=== PATIENT | female | born 1930 | race African-American/Black ===

== ENCOUNTER 2018-01-05 14:30 | Inpatient (IN) | payer MEDICARE, MEDICAID ==
[~2018-01-05] VITALS: Ht 162.6 cm; Wt 60.8 kg
[2018-01-05 16:48] VITALS: BP 165/66
[2018-01-05 16:59] VITALS: BP 155/67
[2018-01-05] MEDS ORDERED: DOCUSATE SODIUM 100MG CAPSULE PO PRN (17:00)
[2018-01-05] MEDS ORDERED: ONDANSETRON HCL 4MG/2ML INJ IV PRN (17:00)
[2018-01-05] MEDS ORDERED: GUAIFENESIN 200MG/10ML SUGAR FREE UDC PO PRN (17:00)
[2018-01-05] MEDS ORDERED: DIPHENHYDRAMINE 50MG/ML VIAL IV PRN (17:00)
[2018-01-05] MEDS ORDERED: CLONIDINE 0.1MG TABLET PO PRN (17:00)
[2018-01-05] MEDS ORDERED: LORAZEPAM 0.5MG TABLET PO PRN (17:00)
[2018-01-05] MEDS ORDERED: IPRATROPIUM/ALBUTEROL 0.5-3(2.5)MG/3ML NEB INH PRN (17:00)
[2018-01-05] MEDS ORDERED: CALC-1042 MT (17:08)
[2018-01-05] MEDS ORDERED: MAGN400C MT (17:08)
[2018-01-05] MEDS ORDERED: LOSA50TA20 MT (17:08)
[2018-01-05] MEDS ORDERED: CHOL500063 MT (17:08)
[2018-01-05] MEDS ORDERED: PREG75CA MT (17:08)
[2018-01-05] MEDS ORDERED: TRAMADOL 50MG TABLET PO PRN (17:26)
[2018-01-05] MEDS: SULFASALAZINE 500MG TABLET PO SCH (18:45)
[2018-01-05 20:00] VITALS: BP 110/50
[2018-01-05 21:00] VITALS: BP_SYST 155; BP_SYST 173; BP_SYST 183; BP_DIAS 129; BP_DIAS 60; BP_DIAS 71
[2018-01-05 21:57] LABS: CLARITY URINE CLEAR (CLEAR); COLOR URINE YELLOW (YELLOW); KETONES URINE NEGATIVE (NEGATIVE); LEUKOCYTE ESTERASE URINE NEGATIVE (NEGATIVE); NITRITE URINE NEGATIVE (NEGATIVE); OCCULT BLOOD URINE NEGATIVE (NEGATIVE); PH URINE 5.5 (4.5-8.0); PROTEIN URINE NEGATIVE (NEGATIVE); SPECIFIC GRAVITY URINE 1.009 (1.005-1.030); UROBILINOGEN URINE 0.2 E.U./dL (0.2-1.0)
[2018-01-05 22:45] VITALS: BP 140/56
[2018-01-06] MEDS: TRAMADOL 50MG TABLET PO PRN ×2 (03:21→21:59)
[2018-01-06] MEDS: OMEPRAZOLE 20MG CAPSULE EXTENDED RELEASE PO SCH (06:16)
[2018-01-06 08:17] VITALS: BP 119/48
[2018-01-06] MEDS: PREGABALIN 75MG CAPSULE PO SCH (09:38)
[2018-01-06] MEDS: SULFASALAZINE 500MG TABLET PO SCH ×2 (09:38→17:11)
[2018-01-06] MEDS: MAGNESIUM OXIDE 400MG TABLET PO SCH (09:38)
[2018-01-06] MEDS: CALCIUM CARBONATE 1250MG TABLET (500MG ELEMENTAL CALCIUM) PO SCH (09:38)
[2018-01-06] MEDS: LOSARTAN POTASSIUM 50 MG TABLET PO SCH (09:38)
[2018-01-06] MEDS: ONDANSETRON HCL 4MG TABLET PO PRN (13:49)
[2018-01-06 20:00] VITALS: BP_SYST 113; BP_SYST 124; BP_SYST 129; BP_DIAS 51; BP_DIAS 60; BP_DIAS 63
[2018-01-06 20:41] VITALS: BP 130/50
[2018-01-07] MEDS: OMEPRAZOLE 20MG CAPSULE EXTENDED RELEASE PO SCH (06:57)
[2018-01-07 07:57] VITALS: BP 150/56
[2018-01-07] MEDS: PREGABALIN 75MG CAPSULE PO SCH (09:27)
[2018-01-07] MEDS: CALCIUM CARBONATE 1250MG TABLET (500MG ELEMENTAL CALCIUM) PO SCH (09:28)
[2018-01-07] MEDS: LOSARTAN POTASSIUM 50 MG TABLET PO SCH (09:28)
[2018-01-07] MEDS: SULFASALAZINE 500MG TABLET PO SCH ×2 (09:28→17:10)
[2018-01-07] MEDS: MAGNESIUM OXIDE 400MG TABLET PO SCH (09:28)
[2018-01-07 15:15] VITALS: BP_SYST 112; BP_SYST 126; BP_SYST 128; BP_DIAS 47; BP_DIAS 51; BP_DIAS 61
[2018-01-07] MEDS: LIDOCAINE 5% PATCH TOP SCH (15:57)
[2018-01-07] MEDS ORDERED: LORAZEPAM 0.5MG TABLET PO PRN (17:00)
[2018-01-07] MEDS: BISACODYL 5MG TABLET PO PRN (17:09)
[2018-01-07] MEDS: DOCUSATE SODIUM 100MG CAPSULE PO SCH (17:10)
[2018-01-07 20:00] VITALS: BP_SYST 110; BP_SYST 126; BP_DIAS 52; BP_DIAS 60
[2018-01-07 20:11] LABS: CLARITY URINE CLEAR (CLEAR); COLOR URINE YELLOW (YELLOW); KETONES URINE NEGATIVE (NEGATIVE); LEUKOCYTE ESTERASE URINE TRACE (NEGATIVE); NITRITE URINE NEGATIVE (NEGATIVE); OCCULT BLOOD URINE NEGATIVE (NEGATIVE); PROTEIN URINE NEGATIVE (NEGATIVE); SPECIFIC GRAVITY URINE 1.008 (1.005-1.030); UROBILINOGEN URINE 0.2 E.U./dL (0.2-1.0)
[2018-01-08] MEDS: ACETAMINOPHEN 325MG TABLET PO PRN (06:19)
[2018-01-08] MEDS: OMEPRAZOLE 20MG CAPSULE EXTENDED RELEASE PO SCH ×2 (06:19→09:18)
[2018-01-08 07:05] LABS: BASOPHILS % 0.7 % (0.0-2.0); EOSINOPHILS % 1.9 % (0.0-5.0); HEMATOCRIT. 39.6 % (36.0-48.0); HEMOGLOBIN. 13.2 g/dL (12.0-16.0); LYMPHOCYTES % 32.7 % (20.0-50.0); MEAN CORPUSCULAR HEMOGLOBIN 26.8 pg (28.0-32.0); MEAN CORPUSCULAR VOLUME 80.4 fL (81.0-99.0); MEAN PLATELET VOLUME 9.6 fl (7.4-10.4); MONOCYTES % 12.7 % (2.0-8.0); PLATELET 274 x1000/uL (130-400); RED BLOOD CELL COUNT 4.93 mill/uL (4.2-5.4); RED CELL DISTRIBUTION WIDTH 15.8 % (11.6-14.6)
[2018-01-08 07:55] VITALS: BP 119/62
[2018-01-08] MEDS: LOSARTAN POTASSIUM 50 MG TABLET PO SCH (09:18)
[2018-01-08] MEDS: SULFASALAZINE 500MG TABLET PO SCH ×2 (09:18→17:31)
[2018-01-08] MEDS: MAGNESIUM OXIDE 400MG TABLET PO SCH (09:18)
[2018-01-08] MEDS: CALCIUM CARBONATE 1250MG TABLET (500MG ELEMENTAL CALCIUM) PO SCH (09:18)
[2018-01-08] MEDS: PREGABALIN 75MG CAPSULE PO SCH (09:19)
[2018-01-08] MEDS: LIDOCAINE 5% PATCH TOP SCH (09:19)
[2018-01-08] MEDS: DOCUSATE SODIUM 100MG CAPSULE PO SCH ×2 (09:19→17:31)
[2018-01-08 20:00] VITALS: BP_SYST 118; BP_SYST 128; BP_DIAS 63; BP_DIAS 68
[2018-01-09 08:00] VITALS: BP_SYST 131; BP_SYST 145; BP_DIAS 54; BP_DIAS 66
[2018-01-09] MEDS: LIDOCAINE 5% PATCH TOP SCH (08:07)
[2018-01-09] MEDS: DOCUSATE SODIUM 100MG CAPSULE PO SCH ×2 (08:08→17:15)
[2018-01-09] MEDS: SULFASALAZINE 500MG TABLET PO SCH ×2 (08:08→17:15)
[2018-01-09] MEDS: PREGABALIN 75MG CAPSULE PO SCH (08:08)
[2018-01-09] MEDS: MAGNESIUM OXIDE 400MG TABLET PO SCH (08:08)
[2018-01-09] MEDS: LOSARTAN POTASSIUM 50 MG TABLET PO SCH (08:08)
[2018-01-09] MEDS: FAMOTIDINE 20MG TABLET PO SCH (08:08)
[2018-01-09] MEDS: CALCIUM CARBONATE 1250MG TABLET (500MG ELEMENTAL CALCIUM) PO SCH (08:08)
[2018-01-09 20:00] VITALS: BP_SYST 124; BP_SYST 128; BP_DIAS 60; BP_DIAS 62
[2018-01-09] MEDS: ACETAMINOPHEN 325MG TABLET PO PRN (22:35)
[2018-01-10 08:00] VITALS: BP_SYST 148; BP_SYST 153; BP_DIAS 64; BP_DIAS 69
[2018-01-10] MEDS: FAMOTIDINE 20MG TABLET PO SCH (08:09)
[2018-01-10] MEDS: LOSARTAN POTASSIUM 50 MG TABLET PO SCH (08:09)
[2018-01-10] MEDS: MAGNESIUM OXIDE 400MG TABLET PO SCH (08:09)
[2018-01-10] MEDS: SULFASALAZINE 500MG TABLET PO SCH ×2 (08:09→17:17)
[2018-01-10] MEDS: DOCUSATE SODIUM 100MG CAPSULE PO SCH ×2 (08:09→17:17)
[2018-01-10] MEDS: LIDOCAINE 5% PATCH TOP SCH (08:10)
[2018-01-10] MEDS: PREGABALIN 75MG CAPSULE PO SCH (08:10)
[2018-01-10] MEDS: CALCIUM CARBONATE 1250MG TABLET (500MG ELEMENTAL CALCIUM) PO SCH (08:10)
[2018-01-10 20:00] VITALS: BP 121/56
[2018-01-10] MEDS ORDERED: SIMETHICONE 80MG TABLET CHEW PO PRN (21:15)
[2018-01-11 08:00] VITALS: BP 148/62
[2018-01-11] MEDS: MAGNESIUM OXIDE 400MG TABLET PO SCH (08:39)
[2018-01-11] MEDS: SULFASALAZINE 500MG TABLET PO SCH ×2 (08:39→17:42)
[2018-01-11] MEDS: PREGABALIN 75MG CAPSULE PO SCH (08:39)
[2018-01-11] MEDS: FAMOTIDINE 20MG TABLET PO SCH (08:39)
[2018-01-11] MEDS: DOCUSATE SODIUM 100MG CAPSULE PO SCH ×2 (08:39→17:42)
[2018-01-11] MEDS: CALCIUM CARBONATE 1250MG TABLET (500MG ELEMENTAL CALCIUM) PO SCH (08:39)
[2018-01-11] MEDS: LOSARTAN POTASSIUM 50 MG TABLET PO SCH (08:39)
[2018-01-11] MEDS: LIDOCAINE 5% PATCH TOP SCH (08:40)
[2018-01-11] MEDS: ONDANSETRON HCL 4MG TABLET PO PRN (09:18)
[2018-01-11] MEDS ORDERED: ALPRAZOLAM 0.25 MG TABLET PO PRN (13:45)
[2018-01-11] MEDS: TRAMADOL 50MG TABLET PO PRN (14:01)
[2018-01-11] MEDS: PETROLATUM,WHITE OPHTH OINT 3.5GM BOTHEYE PRN (15:08)
[2018-01-11] MEDS: BISACODYL 5MG TABLET PO PRN (17:42)
[2018-01-11 18:40] VITALS: BP_SYST 100; BP_DIAS 45; BP_DIAS 61
[2018-01-11 20:00] VITALS: BP_SYST 106; BP_SYST 110; BP_SYST 111; BP_DIAS 51; BP_DIAS 55; BP_DIAS 84
[2018-01-12] MEDS: TRAMADOL 50MG TABLET PO PRN ×2 (01:28→23:01)
[2018-01-12] MEDS: BISACODYL 5MG TABLET PO PRN (06:56)
[2018-01-12 08:00] VITALS: BP 118/55
[2018-01-12] MEDS: MAGNESIUM OXIDE 400MG TABLET PO SCH (08:21)
[2018-01-12] MEDS: SULFASALAZINE 500MG TABLET PO SCH ×2 (08:21→17:08)
[2018-01-12] MEDS: DOCUSATE SODIUM 100MG CAPSULE PO SCH ×3 (08:22→17:12)
[2018-01-12] MEDS: PREGABALIN 75MG CAPSULE PO SCH (08:22)
[2018-01-12] MEDS: CALCIUM CARBONATE 1250MG TABLET (500MG ELEMENTAL CALCIUM) PO SCH (08:22)
[2018-01-12] MEDS: FAMOTIDINE 20MG TABLET PO SCH (08:22)
[2018-01-12] MEDS: LOSARTAN POTASSIUM 50 MG TABLET PO SCH (08:25)
[2018-01-12] MEDS: LIDOCAINE 5% PATCH TOP SCH (08:42)
[2018-01-12 09:00] VITALS: BP_SYST 143; BP_SYST 150; BP_SYST 155; BP_DIAS 47; BP_DIAS 51; BP_DIAS 53
[2018-01-12] MEDS: ONDANSETRON HCL 4MG TABLET PO PRN (09:58)
[2018-01-12 11:09] VITALS: BP 107/48
[2018-01-12 20:00] VITALS: BP_SYST 108; BP_SYST 110; BP_SYST 114; BP_DIAS 41; BP_DIAS 50; BP_DIAS 60
[2018-01-13 08:00] VITALS: BP_SYST 115; BP_SYST 116; BP_DIAS 48; BP_DIAS 50
[2018-01-13] MEDS: FAMOTIDINE 20MG TABLET PO SCH (08:20)
[2018-01-13] MEDS: DOCUSATE SODIUM 100MG CAPSULE PO SCH ×2 (08:20→17:18)
[2018-01-13] MEDS: PREGABALIN 75MG CAPSULE PO SCH (08:20)
[2018-01-13] MEDS: MAGNESIUM OXIDE 400MG TABLET PO SCH (08:20)
[2018-01-13] MEDS: CALCIUM CARBONATE 1250MG TABLET (500MG ELEMENTAL CALCIUM) PO SCH (08:20)
[2018-01-13] MEDS: LOSARTAN POTASSIUM 50 MG TABLET PO SCH (08:22)
[2018-01-13] MEDS: LIDOCAINE 5% PATCH TOP SCH (08:23)
[2018-01-13] MEDS: PETROLATUM,WHITE OPHTH OINT 3.5GM BOTHEYE PRN (13:34)
[2018-01-13] MEDS: TRAMADOL 50MG TABLET PO PRN (16:06)
[2018-01-13 21:18] VITALS: BP 115/55
[2018-01-14 08:00] VITALS: BP_SYST 127; BP_SYST 135; BP_DIAS 51; BP_DIAS 55
[2018-01-14] MEDS: FAMOTIDINE 20MG TABLET PO SCH (08:29)
[2018-01-14] MEDS: CALCIUM CARBONATE 1250MG TABLET (500MG ELEMENTAL CALCIUM) PO SCH (08:29)
[2018-01-14] MEDS: PREGABALIN 75MG CAPSULE PO SCH (08:29)
[2018-01-14] MEDS: LOSARTAN POTASSIUM 50 MG TABLET PO SCH (08:29)
[2018-01-14] MEDS: DOCUSATE SODIUM 100MG CAPSULE PO SCH ×2 (08:29→17:43)
[2018-01-14] MEDS: MAGNESIUM OXIDE 400MG TABLET PO SCH (08:29)
[2018-01-14] MEDS: LIDOCAINE 5% PATCH TOP SCH (08:30)
[2018-01-14 20:00] VITALS: BP_SYST 124; BP_SYST 126; BP_DIAS 58; BP_DIAS 60
[2018-01-15 07:48] VITALS: BP 148/62
[2018-01-15] MEDS: LOSARTAN POTASSIUM 50 MG TABLET PO SCH (08:53)
[2018-01-15] MEDS: MAGNESIUM OXIDE 400MG TABLET PO SCH (08:53)
[2018-01-15] MEDS: FAMOTIDINE 20MG TABLET PO SCH (08:53)
[2018-01-15] MEDS: DOCUSATE SODIUM 100MG CAPSULE PO SCH ×2 (08:53→17:01)
[2018-01-15] MEDS: PREGABALIN 75MG CAPSULE PO SCH (08:53)
[2018-01-15] MEDS: CALCIUM CARBONATE 1250MG TABLET (500MG ELEMENTAL CALCIUM) PO SCH (08:53)
[2018-01-15] MEDS: LIDOCAINE 5% PATCH TOP SCH (08:55)
[2018-01-15] MEDS: BISACODYL 5MG TABLET PO PRN (15:40)
[2018-01-15] MEDS: PETROLATUM,WHITE OPHTH OINT 3.5GM BOTHEYE PRN (15:43)
[2018-01-15 16:50] VITALS: BP 140/52
[2018-01-15] MEDS: TRAMADOL 50MG TABLET PO PRN (17:03)
[2018-01-15 20:00] VITALS: BP 121/48
[2018-01-16 08:00] VITALS: BP 135/53
[2018-01-16] MEDS: CALCIUM CARBONATE 1250MG TABLET (500MG ELEMENTAL CALCIUM) PO SCH (09:22)
[2018-01-16] MEDS: FAMOTIDINE 20MG TABLET PO SCH (09:22)
[2018-01-16] MEDS: DOCUSATE SODIUM 100MG CAPSULE PO SCH ×2 (09:22→17:36)
[2018-01-16] MEDS: PREGABALIN 75MG CAPSULE PO SCH (09:22)
[2018-01-16] MEDS: MAGNESIUM OXIDE 400MG TABLET PO SCH (09:22)
[2018-01-16] MEDS: LOSARTAN POTASSIUM 50 MG TABLET PO SCH (09:22)
[2018-01-16] MEDS: LIDOCAINE 5% PATCH TOP SCH (09:24)
[2018-01-16 20:00] VITALS: BP_SYST 121; BP_SYST 133; BP_DIAS 44; BP_DIAS 59
[2018-01-17 08:04] VITALS: BP 143/63
[2018-01-17] MEDS: MAGNESIUM OXIDE 400MG TABLET PO SCH (08:56)
[2018-01-17] MEDS: DOCUSATE SODIUM 100MG CAPSULE PO SCH ×2 (08:56→17:54)
[2018-01-17] MEDS: FAMOTIDINE 20MG TABLET PO SCH (08:56)
[2018-01-17] MEDS: PREGABALIN 75MG CAPSULE PO SCH (08:56)
[2018-01-17] MEDS: CALCIUM CARBONATE 1250MG TABLET (500MG ELEMENTAL CALCIUM) PO SCH (08:56)
[2018-01-17] MEDS: LOSARTAN POTASSIUM 50 MG TABLET PO SCH (08:56)
[2018-01-17] MEDS: LIDOCAINE 5% PATCH TOP SCH (08:57)
[2018-01-17 20:00] VITALS: BP_SYST 128; BP_SYST 132; BP_DIAS 54; BP_DIAS 63
[2018-01-17] MEDS: ACETAMINOPHEN 325MG TABLET PO PRN (20:34)
[2018-01-18 08:00] VITALS: BP_SYST 147; BP_DIAS 57; BP_DIAS 61
[2018-01-18] MEDS: DOCUSATE SODIUM 100MG CAPSULE PO SCH ×2 (09:43→18:54)
[2018-01-18] MEDS: LOSARTAN POTASSIUM 50 MG TABLET PO SCH (09:43)
[2018-01-18] MEDS: PREGABALIN 75MG CAPSULE PO SCH (09:43)
[2018-01-18] MEDS: MAGNESIUM OXIDE 400MG TABLET PO SCH (09:43)
[2018-01-18] MEDS: FAMOTIDINE 20MG TABLET PO SCH (09:43)
[2018-01-18] MEDS: CALCIUM CARBONATE 1250MG TABLET (500MG ELEMENTAL CALCIUM) PO SCH (09:43)
[2018-01-18] MEDS: LIDOCAINE 5% PATCH TOP SCH (09:43)
[2018-01-18] MEDS: ACETAMINOPHEN 325MG TABLET PO PRN (11:15)
[2018-01-18 20:00] VITALS: BP 109/55
[2018-01-19] MEDS: ACETAMINOPHEN 325MG TABLET PO PRN (01:02)
[2018-01-19 08:00] VITALS: BP 134/50
[2018-01-19] MEDS: DOCUSATE SODIUM 100MG CAPSULE PO SCH (08:16)
[2018-01-19] MEDS: PREGABALIN 75MG CAPSULE PO SCH (08:16)
[2018-01-19] MEDS: FAMOTIDINE 20MG TABLET PO SCH (08:16)
[2018-01-19] MEDS: CALCIUM CARBONATE 1250MG TABLET (500MG ELEMENTAL CALCIUM) PO SCH (08:16)
[2018-01-19] MEDS: MAGNESIUM OXIDE 400MG TABLET PO SCH (08:16)
[2018-01-19] MEDS: LOSARTAN POTASSIUM 50 MG TABLET PO SCH (08:16)
[2018-01-19] MEDS: LIDOCAINE 5% PATCH TOP SCH (08:17)
[2018-01-19 10:41] VITALS: BP 134/50
== END 2018-01-19 13:50 | disposition home health service (06) | DRG 74 ==
PROVIDERS: ADMIT Psychiatry & Neurology Neurology; ATTEND Internal Medicine Critical Care Medicine
DX: G62.9 Polyneuropathy, unspecified (principal); G95.89 Other specified diseases of spinal cord; R53.81 Other malaise; M79.7 Fibromyalgia; G50.0 Trigeminal neuralgia; J33.9 Nasal polyp, unspecified; G89.29 Other chronic pain; M54.9 Dorsalgia, unspecified; K29.70 Gastritis, unspecified, without bleeding; I11.9 Hypertensive heart disease without heart failure; J44.9 Chronic obstructive pulmonary disease, unspecified; H61.20 Impacted cerumen, unspecified ear; M06.9 Rheumatoid arthritis, unspecified; E78.5 Hyperlipidemia, unspecified; I73.9 Peripheral vascular disease, unspecified; L30.9 Dermatitis, unspecified; M13.0 Polyarthritis, unspecified; Z60.2 Problems related to living alone; H26.9 Unspecified cataract; R26.9 Unspecified abnormalities of gait and mobility; R30.0 Dysuria; R00.1 Bradycardia, unspecified; M35.3 Polymyalgia rheumatica; F41.9 Anxiety disorder, unspecified; M25.78 Osteophyte, vertebrae; M47.812 Spondylosis without myelopathy or radiculopathy, cervical region; M48.02 Spinal stenosis, cervical region; Z88.8 Allergy status to other drugs, medicaments and biological substances
CPT/HCPCS: 36415; 72141; 80048; 84443; 92523; 93005; 93306; 93970; 94640; 97110; 97112; 97116; 97162; 97167; 97530; 97535; G0515; J2405; J7620; Q0162

== ENCOUNTER → 2019-10-31 | Outpatient (CLI) | payer MEDICARE, MEDICAID ==
[~2019-10-31] MED LIST: BARIUM SULFATE 450ML ORAL SUSP ONE; CALC-1042 MT; CHOL500063 MT; LOSA50TA41 MT; MAGN400C MT; PREG75CA MT
== END | disposition home or self-care (01) ==
LOC: CT 07:10
PROVIDERS: ATTEND Internal Medicine Critical Care Medicine
DX: D17.79 Benign lipomatous neoplasm of other sites (principal); I70.0 Atherosclerosis of aorta; I35.8 Other nonrheumatic aortic valve disorders; R10.9 Unspecified abdominal pain; Z90.710 Acquired absence of both cervix and uterus; K57.10 Diverticulosis of small intestine without perforation or abscess without bleeding; R60.0 Localized edema
CPT/HCPCS: 74176